=== PATIENT | female | born 1965 | race Caucasian/White ===

== ENCOUNTER 2022-12-10 10:22 | Observation (INO) | payer OTHER ==
[2022-12-10 11:20] LABS: Basophils % (A) 1 %; Eosinophils # (A) 0.3 k/uL (0-0.7); Eosinophils % (A) 5 %; HCT 35.5 % (34.0-46.0); HGB 11.2 gm/dL (11.4-16.0); Lymphocytes # (A) 0.8 k/uL (1.0-4.8); Lymphocytes % (A) 15 %; MCH 30.8 pg (25.0-35.0); MCHC 31.4 g/dL (31.0-37.0); Mean Platelet Volume 8.7; Monocytes # (A) 0.3 k/uL (0-1.0); Monocytes % (A) 6 %; Neutrophils # (A) 3.8 k/uL (1.3-7.7); Neutrophils % (A) 70 %; Platelet Count 154 k/uL (150-450); RBC 3.63 m/uL (3.80-5.40); WBC 5.4 k/uL (3.8-10.6)
[2022-12-10] MEDS ORDERED: LORazepam 2 MG/ML INJ IV STA ×2 (11:20→12:47)
[2022-12-10 11:33] LABS: ALT 137 U/L (4-34); AST 188 U/L (14-36); African American GFR (CKD) 84 (>60 ml/min/1.73 sqM); Albumin 4.7 g/dL (3.5-5.0); Alcohol <10 mg/dL; Alkaline Phosphatase 88 U/L (38-126); Anion Gap 11 mmol/L; Blood Urea Nitrogen 20 mg/dL (7-17); Calcium 9.3 mg/dL (8.4-10.2); Carbon Dioxide 24 mmol/L (22-30); Chloride 102 mmol/L (98-107); Glucose 114 mg/dL (74-99); Magnesium 1.9 mg/dL (1.6-2.3); Non-African American GFR(CKD) 73 (>60 ml/min/1.73 sqM); Potassium 4.1 mmol/L (3.5-5.1); Sodium 137 mmol/L (137-145); Total Bilirubin 0.6 mg/dL (0.2-1.3); Total Protein 7.1 g/dL (6.3-8.2)
--- NOTE | 2022-12-10 11:33 | ED ---
Psych HPI - General Chief Complaint: Psychiatric Symptoms Stated Complaint: AMS, weakness Time Seen by Provider: 12/10/22 10:39 Source: patient, family, RN notes reviewed Mode of arrival: ambulatory Limitations: no limitations - History of Present Illness Initial Comments: 57-year-old female presents emergency Department with family for evaluation dizziness, locations. Patient reportedly has been having some on-and-off hallucinations over the last week which patient states that she is visualizing the and hearing things that are not present to others. She states she is aware of the symptoms she doesn't that she has a history of depression denies s chizophrenia or bipolar disorder she is prescribed Prozac 60 mg daily but states that she's not always taking it. Patient denies any recent infections. Patient states she is dizzy worse with movement states the room spins discolored feel nauseated. Denies cough or cold like symptoms no chest pain no palpitations she states she had head trauma years ago but had no effects from this. - Related Data Home Medications Medication Instructions Recorded Confirmed FLUoxetine HCL [PROzac] 60 mg PO DAILY 12/10/22 12/12/22 Allergies Allergy/AdvReac Type Severity Reaction Status Date / Time No Known Allergies Allergy Verified 12/11/22 23:05 Review of Systems ROS Statement: Those systems with pertinent positive or pertinent negative responses have been documented in the HPI. ROS Other: All systems not noted in ROS Statement are negative. Past Medical History Past Medical History: Osteoarthritis (OA) History of Any Multi-Drug Resistant Organisms: None Reported Past Surgical History: Orthopedic Surgery Past Psychological History: Anxiety, Depression Smoking Status: Never smoker Past Alcohol Use History: Abuse Past Drug Use History: None Reported General Exam Limitations: no limitations General appearance: alert, in no apparent distress Head exam: Present: atraumatic, normocephalic, normal inspection Eye exam: Present: normal appearance, PERRL, EOMI. Absent: scleral icterus, conjunctival injection, periorbital swelling ENT exam: Present: normal exam, normal oropharynx, mucous membranes moist Neck exam: Present: normal inspection, full ROM. Absent: tenderness, meningismus, lymphadenopathy Respiratory exam: Present: normal lung sounds bilaterally. Absent: respiratory distress, wheezes, rales, rhonchi, stridor Cardiovascular Exam: Present: normal rhythm, tachycardia, normal heart sounds. Absent: systolic murmur, diastolic murmur, rubs, gallop, clicks GI/Abdominal exam: Present: soft, normal bowel sounds. Absent: distended, tenderness, guarding, rebound, rigid Neurological exam: Present: alert, oriented X3, CN II-XII intact, reflexes normal. Absent: motor sensory deficit Skin exam: Present: warm, dry, intact, normal color. Absent: rash Course Vital Signs 12/10/22 12/10/22 12/10/22 10:36 11:21 13:00 Temperature 98 F Pulse Rate 119 H 115 H 101 H Respiratory 22 20 20 Rate Blood Pressure 151/79 152/98 138/95 O2 Sat by Pulse 96 98 98 Oximetry 12/10/22 12/10/22 12/10/22 21:06 22:46 23:55 Temperature Pulse Rate 96 96 105 H Respiratory 20 18 16 Rate Blood Pressure 147/97 149/94 132/99 O2 Sat by Pulse 98 97 98 Oximetry Medical Decision Making - Medical Decision Making Was pt. sent in by a medical professional or institution (, PA, MULTIPLE LA[employer]CH ROCK[employer] SYSTEM CREWMEMBER, urgent care, hospital, or senior care...) When possible be specific @ -No Did you speak to anyone other than the patient for history (EMS, parent, family, police, friend...)? What history was obtained from this source @ -Family Did you review nursing and triage notes (agree or disagree)? Why? @ -I reviewed and agree with nursing and triage notes Were old charts reviewed (outside hosp., previous admission, EMS record, old EKG, old radiological studies, urgent care reports/EKG's, senior care records)? Report findings @ -No old charts were reviewed Differential Diagnosis (chest pain, altered mental status, abdominal pain women, abdominal pain men, vaginal bleeding, weakness, fever, dyspnea, syncope, headache, dizziness, GI bleed, back pain, seizure, CVA, palpatations, mental health)? @ -Psychosis, alcohol withdrawal, depression, anxiety, schizophrenia, bipolar d isorder, this list is not all-inclusive EKG interpreted by me (3pts min.). @ -As above X-rays interpreted by me (1pt min.). @ -None done CT interpreted by me (1pt min.). @ -None done U/S interpreted by me (1pt. min.). @ -None done What testing was considered but not performed or refused? (CT, X-rays, U/S, labs)? Why? @ -None What meds were considered but not given or refused? Why? @ -None Did you discuss the management of the patient with other professionals (professionals i.e. , PA, M[employer]IP[employer] R[employer] SYSTEM CREWMEMBER, lab, RT, psych nurse, social services technician, needle loom setter, teacher, commercial credit officer, case assembler)? Give summary @ -Dr Gil, psychiatric nurse Was smoking cessation discussed for >3mins.? @ -No Was critical care preformed (if so, how long)? @ -No Were there social determinants of health that impacted care today? How? (Homelessness, low income, unemployed, alcoholism, drug addiction, transportation, low edu. Level, literacy, decrease access to med. care, [facility], rehab)? @ -No Was there de-escalation of care discussed even if they declined (Discuss DNR or withdrawal of care, Hospice)? DNR status @ -No What co-morbidities impacted this encounter? (DM, HTN, Smoking, COPD, CAD, C ancer, CVA, ARF, Chemo, Hep., AIDS, mental health diagnosis, sleep apnea, morbid obesity)? @ -None Was patient admitted / discharged? Hospital course, mention meds given and route, prescriptions, significant lab abnormalities, going to OR and other pertinent info. @ -Admitted patient be admitted to medicine for further monitoring and evalua tion psychiatric consult. Undiagnosed new problem with uncertain prognosis? @ -No Drug Therapy requiring intensive monitoring for toxicity (Heparin, Nitro, Insulin, Cardizem)? @ -No Were any procedures done? @ -No Diagnosis/symptom? @ -Psychosis Acute, or Chronic, or Acute on Chronic? @ -Acute Uncomplicated (without systemic symptoms) or Complicated (systemic symptoms)? @ -[Complicated Side effects of treatment? @ -No Exacerbation, Progression, or Severe Exacerbation? @ -No Poses a threat to life or bodily function? How? (Chest pain, USA, PR, pneumonia, PE, COPD, DKA, ARF, appy, cholecystitis, CVA, Diverticulitis, Homicidal, Suicidal, threat to staff... and all critical care pts) @ -No - Lab Data Result diagrams: 12/10/22 11:07 12/10/22 11:07 Lab Results 12/10/22 12/10/22 12/10/22 Range/Units 11:07 11:07 11:07 WBC 5.4 (3.8-10.6) k/uL RBC 3.63 L (3.80-5.40) m/uL Hgb 11.2 L (11.4-16.0) gm/dL Hct 35.5 (34.0-46.0) % MCV 98.0 (80.0-100.0) fL MCH 30.8 (25.0-35.0) pg MCHC 31.4 (31.0-37.0) g/dL RDW 15.0 (11.5-15.5) % Plt Count 154 (150-450) k/uL MPV 8.7 Neutrophils % 70 % Lymphocytes % 15 % Monocytes % 6 % Eosinophils % 5 % Basophils % 1 % Neutrophils # 3.8 (1.3-7.7) k/uL Lymphocytes # 0.8 L (1.0-4.8) k/uL Monocytes # 0.3 (0-1.0) k/uL Eosinophils # 0.3 (0-0.7) k/uL Basophils # 0.0 (0-0.2) k/uL Sodium 137 (137-145) mmol/L Potassium 4.1 (3.5-5.1) mmol/L Chloride 102 (98-107) mmol/L Carbon Dioxide 24 (22-30) mmol/L Anion Gap 11 mmol/L BUN 20 H (7-17) mg/dL Creatinine 0.88 (0.52-1.04) mg/dL Est GFR (CKD-EPI)AfAm 84 (>60 ml/min/1.73 sqM) Est GFR (CKD-EPI)NonAf 73 (>60 ml/min/1.73 sqM) Glucose 114 H (74-99) mg/dL Calcium 9.3 (8.4-10.2) mg/dL Magnesium 1.9 (1.6-2.3) mg/dL Total Bilirubin 0.6 (0.2-1.3) mg/dL AST 188 H (14-36) U/L ALT 137 H (4-34) U/L Alkaline Phosphatase 88 (38-126) U/L Troponin I (0.000-0.034) ng/mL Total Protein 7.1 (6.3-8.2) g/dL Albumin 4.7 (3.5-5.0) g/dL Urine Color Urine Appearance (Clear) Urine pH (5.0-8.0) Ur Specific [place] (1.001-1.035) Urine Protein (Negative) Urine Glucose (UA) (Negative) Urine Ketones (Negative) Urine Blood (Negative) Urine Nitrite (Negative) Urine Bilirubin (Negative) Urine Urobilinogen (<2.0) mg/dL Ur Leukocyte Esterase (Negative) Urine RBC (0-5) /hpf Urine WBC (0-5) /hpf Ur Squamous Epith Cells (0-4) /hpf Urine Bacteria (None) /hpf Hyaline Casts (0-2) /lpf Urine Mucus (None) /hpf Urine Opiates Screen Not Detected (NotDetected) Ur Oxycodone Screen Not Detected (NotDetected) Urine Methadone Screen Not Detected (NotDetected) Ur Propoxyphene Screen Not Detected (NotDetected) Ur Barbiturates Screen Not Detected (NotDetected) U Tricyclic Antidepress Detected H (NotDetected) Ur Phencyclidine Scrn Not Detected (NotDetected) Ur Amphetamines Screen Not Detected (NotDetected) U Methamphetamines Scrn Not Detected (NotDetected) U Benzodiazepines Scrn Detected H (NotDetected) Urine Cocaine Screen Not Detected (NotDetected) U Marijuana (THC) Screen Not Detected (NotDetected) Serum Alcohol <10 mg/dL 12/10/22 12/10/22 Range/Units 11:07 11:07 WBC (3.8-10.6) k/uL RBC (3.80-5.40) m/uL Hgb (11.4-16.0) gm/dL Hct (34.0-46.0) % MCV (80.0-100.0) fL MCH (25.0-35.0) pg MCHC (31.0-37.0) g/dL RDW (11.5-15.5) % Plt Count (150-450) k/uL MPV Neutrophils % % Lymphocytes % % Monocytes % % Eosinophils % % Basophils % % Neutrophils # (1.3-7.7) k/uL Lymphocytes # (1.0-4.8) k/uL Monocytes # (0-1.0) k/uL Eosinophils # (0-0.7) k/uL Basophils # (0-0.2) k/uL Sodium (137-145) mmol/L Potassium (3.5-5.1) mmol/L Chloride (98-107) mmol/L Carbon Dioxide (22-30) mmol/L Anion Gap mmol/L BUN (7-17) mg/dL Creatinine (0.52-1.04) mg/dL Est GFR (CKD-EPI)AfAm (>60 ml/min/1.73 sqM) Est GFR (CKD-EPI)NonAf (>60 ml/min/1.73 sqM) Glucose (74-99) mg/dL Calcium (8.4-10.2) mg/dL Magnesium (1.6-2.3) mg/dL Total Bilirubin (0.2-1.3) mg/dL AST (14-36) U/L ALT (4-34) U/L Alkaline Phosphatase (38-126) U/L Troponin I <0.012 (0.000-0.034) ng/mL Total Protein (6.3-8.2) g/dL Albumin (3.5-5.0) g/dL Urine Color Yellow Urine Appearance Cloudy H (Clear) Urine pH 6.5 (5.0-8.0) Ur Specific [place] 1.026 (1.001-1.035) Urine Protein 1+ H (Negative) Urine Glucose (UA) Negative (Negative) Urine Ketones Trace H (Negative) Urine Blood Negative (Negative) Urine Nitrite Negative (Negative) Urine Bilirubin Negative (Negative) Urine Urobilinogen <2.0 (<2.0) mg/dL Ur Leukocyte Esterase Large H (Negative) Urine RBC 5 (0-5) /hpf Urine WBC 32 H (0-5) /hpf Ur Squamous Epith Cells <1 (0-4) /hpf Urine Bacteria Rare H (None) /hpf Hyaline Casts 6 H (0-2) /lpf Urine Mucus Rare H (None) /hpf Urine Opiates Screen (NotDetected) Ur Oxycodone Screen (NotDetected) Urine Methadone Screen (NotDetected) Ur Propoxyphene Screen (NotDetected) Ur Barbiturates Screen (NotDetected) U Tricyclic Antidepress (NotDetected) Ur Phencyclidine Scrn (NotDetected) Ur Amphetamines Screen (NotDetected) U Methamphetamines Scrn (NotDetected) U Benzodiazepines Scrn (NotDetected) Urine Cocaine Screen (NotDetected) U Marijuana (THC) Screen (NotDetected) Serum Alcohol mg/dL - EKG Data -: EKG Interpreted by Me EKG Comments: EKG performed at 11:50 sinus rhythm with incomplete right bundle rate 99 TX 172 QRS 94 QT/TC 393/450 Disposition Clinical Impression: Acute psychosis, Alcoholism, Acute delirium, Stress reaction, chronic Disposition: ADMITTED IP TO THIS HOSP Condition: Good
--- NOTE | 2022-12-10 12:01 | CT ---
EXAMINATION TYPE: CT brain wo con CT DLP: 1099.4 mGycm, Automated exposure control for dose reduction was used. DATE OF EXAM: 12/10/2022 11:53 AM COMPARISON: None. CLINICAL INDICATION:Female, 57 years old with history of dizziness, AMS TECHNIQUE: Brain: Axial CT images of the brain were obtained with coronal and sagittal reformats created and rev iewed. Contrast used: None. Oral contrast used: None. FINDINGS: Brain: Extra-axial spaces: No abnormal extra-axial fluid collections. Ventricular system: Within normal limits Cerebral parenchyma: No acute intraparenchymal hemorrhage or mass effect. The meng-white junction is well differentiated. Cerebellum: Unremarkable. Mass effect: No evidence of midline shift. Intracranial vasculature: Atherosclerotic calcifications of the intracranial vessels. Soft tissues: Normal. Calvarium/osseous structures: No depressed skull fracture. Paranasal sinuses and mastoid air cells: Mild scattered paranasal sinus disease. Visualized orbits: Orbital contents are intact. IMPRESSION: No acute intracranial process.
[2022-12-10] MEDS ORDERED: SODIUM CHLORIDE 0.9% 1,000 ML IV STA (12:18)
[2022-12-10 14:58] LABS: Appearance,Urine Cloudy (Clear); Bacteria,Urine Rare /hpf; Bilirubin,Urine Negative (Negative); Blood,Urine Negative (Negative); Color,Urine Yellow; Glucose,Urine (UA) Negative (Negative); Hyaline Casts,Urine 6 /lpf (0-2); Ketones,Urine Trace (Negative); Leukocyte Esterase,Urine Large (Negative); Mucus,Urine Rare /hpf; Nitrite,Urine Negative (Negative); PH, Urine 6.5 (5.0-8.0); Protein,Urine 1+ (Negative); RBC,Urine 5 /hpf (0-5); Specific Gravity,Urine 1.026 (1.001-1.035); Squamous Epithelial Cell,Urine <1 /hpf (0-4); Urobilinogen,Urine <2.0 mg/dL (<2.0); WBC,Urine 32 /hpf (0-5)
[2022-12-10 15:08] LABS: Amphetamine Screen,Urine Not Detected (NotDetected); Barbiturate Screen,Urine Not Detected (NotDetected); Benzodiazepines Screen,Urine Detected (NotDetected); Cocaine Screen,Urine Not Detected (NotDetected); Methadone Screen, Urine Not Detected (NotDetected); Opiate Screen,Urine Not Detected (NotDetected); Oxycodone Screen, Urine Not Detected (NotDetected); Phencyclidine Screen,Urine Not Detected (NotDetected); Tricyclic Antidepressant,Urine Detected (NotDetected); Urn Cannabinoid Scrn Not Detected (NotDetected)
[2022-12-10] MEDS ORDERED: cefTRIAXone IN SWFI 1,000 MG/10 ML SYRINGE IVP STA (20:37)
[2022-12-10] MEDS: chlordiazePOXIDE 25 MG CAP PO SCH (21:03)
[2022-12-10] MEDS ORDERED: SULFAMETHOX-TMP 800-160MG 1 EACH TAB PO STA (22:22)
[2022-12-10] MEDS ORDERED: NALOXONE 0.4 MG/ML 1 ML VIAL IV PRN (22:27)
[2022-12-10] MEDS ORDERED: LORazepam 2 MG/ML INJ IV PRN ×3 (22:31)
[2022-12-10] MEDS: SODIUM CHLORIDE 0.9% 1,000 ML IV SCH (23:25)
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
[2022-12-11] MEDS: FAMOTIDINE 20 MG TAB PO SCH ×2 (08:55→20:38)
[2022-12-11] MEDS: chlordiazePOXIDE 25 MG CAP PO SCH ×3 (08:55→20:38)
[2022-12-11] MEDS: CIPROFLOXACIN HCL 500 MG TAB PO SCH ×2 (08:55→20:38)
[2022-12-11] MEDS ORDERED: FLUoxetine HCL 20 MG CAP PO SCH (09:00)
[2022-12-11] MEDS ORDERED: THIAMINE 100 MG TAB PO SCH (09:00)
[2022-12-11] MEDS: SODIUM CHLORIDE 0.9% 1,000 ML IV SCH (09:25)
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
[2022-12-11 14:52] VITALS: TEMP 98
[2022-12-11] MEDS ORDERED: risperiDONE 1 MG TAB PO SCH (21:00)
[2022-12-11 21:27] VITALS: BP 126/72; PULSE 88; RESP 15
[2022-12-12] MEDS ORDERED: VENLAFAXINE HCL ER 37.5 MG CAP PO SCH (09:00)
== END 2022-12-11 22:08 ==
LOC: EC 10:22 → 4SSUR 22:27 → INTOOBSV 22:27 → 4SSUR 23:17 → UNDODISIN 12-11 22:08
PROVIDERS: ADMIT Family Medicine; ATTEND Family Medicine
DX: F10.239 Alcohol dependence with withdrawal, unspecified (principal); F23 Brief psychotic disorder; N39.0 Urinary tract infection, site not specified; F43.9 Reaction to severe stress, unspecified; F32.A Depression, unspecified; F41.9 Anxiety disorder, unspecified; M19.90 Unspecified osteoarthritis, unspecified site; R45.851 Suicidal ideations; F10.20 Alcohol dependence, uncomplicated; Z71.41 Alcohol abuse counseling and surveillance of alcoholic; Z20.822 Contact with and (suspected) exposure to COVID-19; Y90.0 Blood alcohol level of less than 20 mg/100 ml; I45.10 Unspecified right bundle-branch block; Z91.14 Patient's other noncompliance with medication regimen; Z79.899 Other long term (current) drug therapy; Z81.8 Family history of other mental and behavioral disorders
CPT/HCPCS: 96376; 96361; 96374; 96375; 99285; 36415; 93005; 80053; 83735; 84484; 85025; 81001; 80306; 87086; 87077; 87186; 87635; 70450; G0378 ×2; G0480; J2060; J0696; 80320

== ENCOUNTER 2022-12-11 22:52 | Inpatient (IN) | payer MEDICAID ==
[2022-12-11] MEDS ORDERED: MAG HYDROX/AL HYDROX/SIMETH 30 ML CUP PO PRN (23:12)
[2022-12-11] MEDS ORDERED: HALOPERIDOL LACTATE 5 MG/ML 1 ML VIAL IM PRN (23:12)
[2022-12-11] MEDS ORDERED: MAGNESIUM HYDROXIDE 2,400 MG/10 ML CUP PO PRN (23:12)
[2022-12-11] MEDS ORDERED: LORazepam 1 MG TAB PO PRN ×2 (23:12)
[2022-12-11] MEDS ORDERED: LORazepam 2 MG/ML INJ IM PRN (23:25)
[2022-12-11] MEDS ORDERED: haloperidoL 5 MG TAB PO PRN (23:26)
[2022-12-12] MEDS: chlordiazePOXIDE 25 MG CAP PO SCH ×4 (08:47→20:39)
[2022-12-12] MEDS: FAMOTIDINE 20 MG TAB PO SCH ×2 (08:47→20:39)
[2022-12-12] MEDS: ACETAMINOPHEN TAB 325 MG TAB PO PRN ×2 (08:47→23:39)
[2022-12-12] MEDS: MULTIVITAMINS, THERA 1 EACH TAB PO SCH (08:47)
[2022-12-12] MEDS: CIPROFLOXACIN HCL 500 MG TAB PO SCH ×2 (08:47→20:38)
[2022-12-12] MEDS: THIAMINE 100 MG TAB PO SCH (08:47)
[2022-12-12] MEDS: FOLIC ACID 1 MG TAB PO SCH (08:47)
[2022-12-12] MEDS ORDERED: NICOTINE 14MG/24HR PATCH TRANSDERM SCH (09:00)
[2022-12-12 09:26] VITALS: BMI 19.9
[2022-12-12 13:44] LABS: Chol/HDL Ratio 2.34 Ratio; LDL Cholesterol,Calculated 145.2 mg/dL (0.0-131.0); VLDL Calculation 12.82 mg/dL (5.00-40.00)
[2022-12-12 17:20] LABS: African American GFR (CKD) 109.9 (60.0-200.0); Anion Gap 13.8 mmol/L (10.00-18.00); Carbon Dioxide 22.2 mmol/L (20.0-27.5); Magnesium 2.2 mg/dL (1.5-2.4); Non-African American GFR(CKD) 94.8 (60.0-200.0); Potassium 4.3 mmol/L (3.5-5.5); T4, Free (Free Thyroxine) 1.02 ng/dL (0.800-1.800); Total Bilirubin 0.3 mg/dL (0.30-1.20); Total Protein 5.6 g/dL (6.2-8.2)
--- NOTE | 2022-12-12 18:12 | P.CONS ---
History of Present Illness - Reason for Consult Consult date: 12/12/22 Medical management - Chief Complaint Severe depression - History of Present Illness 57-year-old female patient with long-standing history of alcohol abuse, admitted voluntarily to mental health unit for severe recurrent depression and substance abuse Patient reports she stopped drinking about a week ago and was starting to have visual hallucinations, dizziness and agitation and irritability and was brought to ED by the patient's sister and [id number] Review of Systems REVIEW OF SYSTEMS: CONSTITUTIONAL: No fever, no malaise, no fatigue. HEENT: No recent visual problems or hearing problems. Denied any sore throat. CARDIOVASCULAR: No chest pain, orthopnea, PND, no palpitations, no syncope. PULMONARY: No shortness of breath, no cough, no hemoptysis. GASTROINTESTINAL: No diarrhea, no nausea, no vomiting, no abdominal pain. NEUROLOGICAL: No headaches, no weakness, no numbness. HEMATOLOGICAL: Denies any bleeding or petechiae. GENITOURINARY: Denies any burning micturition, frequency, or urgency. MUSCULOSKELETAL/RHEUMATOLOGICAL: Denies any joint pain, swelling, or any muscle pain. ENDOCRINE: Denies any polyuria or polydipsia. The rest of the 14-point review of systems is negative. Past Medical History Past Medical History: Osteoarthritis (OA) History of Any Multi-Drug Resistant Organisms: None Reported Past Surgical History: Orthopedic Surgery Past Psychological History: Anxiety, Depression Smoking Status: Never smoker Past Alcohol Use History: Abuse Past Drug Use History: None Reported Medications and Allergies Home Medications Medication Instructions Recorded Confirmed Type FLUoxetine HCL [PROzac] 60 mg PO DAILY 12/10/22 12/12/22 History Allergies Allergy/AdvReac Type Severity Reaction Status Date / Time No Known Allergies Allergy Verified 12/12/22 11:29 Physical Exam Vitals: Vital Signs Temp Pulse Resp BP Pulse Ox 12/12/22 08:50 107 H 110/60 12/11/22 23:42 97.5 F L 94 18 114/71 95 Intake and Output 12/11/22 12/12/22 12/12/22 22:59 06:59 14:59 Other: Weight 50.95 kg 50.95 kg PHYSICAL EXAMINATION: GENERAL: The patient is alert and oriented x3, not in any acute distress. Well d eveloped, well nourished. HEENT: Pupils are round and equally reacting to light. EOMI. No scleral icterus. No conjunctival pallor. Normocephalic, atraumatic. No pharyngeal erythema. No thyromegaly. CARDIOVASCULAR: S1 and S2 present. No murmurs, rubs, or gallops. PULMONARY: Chest is clear to auscultation, no wheezing or crackles. ABDOMEN: Soft, nontender, nondistended, normoactive bowel sounds. No palpable organomegaly. MUSCULOSKELETAL: No joint swelling or deformity. EXTREMITIES: No cyanosis, clubbing, or pedal edema. NEUROLOGICAL: Gross neurological examination did not reveal any focal deficits. SKIN: No rashes. Results CBC & Chem 7: 12/12/22 06:37 Labs: Abnormal Lab Results - Last 24 Hours (Table) 12/12/22 Range/Units 06:37 TSH 0.193 L (0.465-4.680) mIU/L Assessment and Plan Assessment: 1. Recurrent major depression; patient's Prozac at home 2. Substance abuse; patient reports alcohol abuse for a long time; stopped drinking about 2 weeks ago 3. EtOH detox/withdrawal; patient has been placed on CIWA protocol with Ativan and Librium 4. Transaminitis; AST/ALT is elevated at 120/131 5. Hyperlipidemia; total cholesterol is elevated at 276 with an LDL of 145.2; patient currently not on any statin therapy 6. Low TSH; we will check free T4 levels
[2022-12-12] MEDS: traZODone HCL 50 MG TAB PO SCH (20:39)
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
[2022-12-12] MEDS: LORazepam 1 MG TAB PO PRN (23:39)
[2022-12-13] MEDS: THIAMINE 100 MG TAB PO SCH (08:37)
[2022-12-13] MEDS: MULTIVITAMINS, THERA 1 EACH TAB PO SCH (08:37)
[2022-12-13] MEDS: VENLAFAXINE HCL ER 75 MG CAP PO SCH (08:37)
[2022-12-13] MEDS: FAMOTIDINE 20 MG TAB PO SCH ×2 (08:37→20:30)
[2022-12-13] MEDS: chlordiazePOXIDE 25 MG CAP PO SCH ×3 (08:37→18:34)
[2022-12-13] MEDS: FOLIC ACID 1 MG TAB PO SCH (08:37)
[2022-12-13] MEDS: CIPROFLOXACIN HCL 500 MG TAB PO SCH ×2 (08:37→20:30)
--- NOTE | 2022-12-13 19:02 | P.PN ---
Progress Note - Text Progress Note Date: 12/13/22 Interval history: Patient was seen wandering the hallways and was directable and agreeable to speak with contract writer. She reports her mood is better today, still appears anxious, but is improved from yesterday. At this time patient denies any suicidal or homicidal ideation, intent or plan. Denies any auditory or visual hallucinations. Patient denies any side effects from the medications and has been compliant with meds. She is tolerating the Effexor XR. She reports she had difficulty falling asleep last night despite taking Trazodone 50 mg x 1 and took an Ativan 1 mg po x 1 around midnight for anxiety and was able to sleep after that. She denies shaking/tremoring from alcohol withdrawal currently and is tolerating the Librium taper. Mental status exam: General Appearance: Patient appears to be stated age, slender adult female with martinez hair, average grooming and hygiene. Behavior: Patient attempted to cooperate without any agitated behavior. Fair eye contact. Speech: Patient's speech is fluent and non-pressured. Mood/Affect: Mood is mildly improving, affect is anxious and constricted. Suicidality/Homicidality: Patient denies having any homicidal or suicidal ideation, intent or plan. Perceptions: Patient denies any visual hallucinations and denies any auditory hallucinations. Though content/process: There is no evidence of any delusional thought content and thought process is ruminative. Memory and concentration: AOX3, grossly intact for the purposes of this session. Judgment and insight: fair Assessment/Plan: Continue with current diagnosis. Patient continues to meet criteria for inpatient psychiatric admission for symptom stabilization and safety. Continue Effexor XR 75 mg daily for depression/anxiety, with plan to gradually increase as tolerated. Continue Trazodone 50 mg QHS scheduled for insomnia. Decrease Librium from 25 mg QID to 25 mg TID for alcohol withdrawal. Monitor vital signs closely. Monitor for medication compliance and for any psychotropic medication side effects. Will continue to monitor ongoing response to treatment. Encouraged participation in milieu.
[2022-12-13] MEDS: LORazepam 1 MG TAB PO PRN (20:30)
[2022-12-13] MEDS: traZODone HCL 50 MG TAB PO SCH (20:30)
[2022-12-13] MEDS ORDERED: chlordiazePOXIDE 25 MG CAP PO SCH (22:00)
[2022-12-14] MEDS ORDERED: chlordiazePOXIDE 25 MG CAP PO SCH (08:00)
[2022-12-14] MEDS: MULTIVITAMINS, THERA 1 EACH TAB PO SCH (08:55)
[2022-12-14] MEDS: FAMOTIDINE 20 MG TAB PO SCH ×2 (08:55→20:10)
[2022-12-14] MEDS: THIAMINE 100 MG TAB PO SCH (08:55)
[2022-12-14] MEDS: FOLIC ACID 1 MG TAB PO SCH (08:55)
[2022-12-14] MEDS: VENLAFAXINE HCL ER 75 MG CAP PO SCH (08:55)
[2022-12-14] MEDS: CIPROFLOXACIN HCL 500 MG TAB PO SCH ×2 (08:55→20:10)
--- NOTE | 2022-12-14 13:29 | P.PN ---
Progress Note - Text Progress Note Date: 12/14/22 Interval history: Patient was seen wandering the hallways and was directable and agreeable to s peak with automobile and property underwriter. Patient was also seen earlier in group today participating. She appears to be improved in terms of her mood and also anxiety. She claims that she is now "able to concentrate". She claims that the medications have been helping significantly. She also claims that she was able to sleep a bit better last night. She is not reporting any side effects at this time. Claims that she has been going to groups. She states she is unsure about doing inpatient rehab and would rather do outpatient treatment. She claims that her withdrawal symptoms of decreased significantly. At this time she is denying any auditory or visual hallucinations, not endorsing delusions or paranoia. She is denying any suicidal or homicidal ideations intent or plan. Mental status exam: General Appearance: Patient appears to be stated age, slender adult female with martinez hair, average grooming and hygiene. Behavior: Patient attempted to cooperate without any agitated behavior. improving eye contact. Speech: Patient's speech is fluent and non-pressured. Mood/Affect: Mood is mildly improving, affect is anxious Suicidality/Homicidality: Patient denies having any homicidal or suicidal ideation, intent or plan. Perceptions: Patient denies any visual hallucinations and denies any auditory hallucinations. Though content/process: There is no evidence of any delusional thought content and thought process is ruminative. improving. Memory and concentration: AOX3, grossly intact for the purposes of this session. Judgment and insight: fair, improving midlly Plan: Psychosis NOS alcohol use disorder severe dependence trauma related stress disorder Treatment: Continue with current diagnosis. Patient continues to meet criteria for inpatient psychiatric admission for symptom stabilization and safety. increase Effexor XR 150 mg daily for depression/anxiety increase Trazodone 100 mg QHS scheduled for insomnia. Decrease Librium from 10 mg QID for alcohol withdrawal. Monitor vital signs danyelle sely and continue tapering down. Monitor for medication compliance and for any psychotropic medication side effects. Will continue to monitor ongoing response to treatment. Encouraged participation in milieu. likely discharge tomorrow. Patient states that she doesnt want to do inpatient rehab and would prefer to do outpatient.
[2022-12-14] MEDS ORDERED: traZODone HCL 100 MG TAB PO SCH (21:00)
[2022-12-15 06:32] VITALS: BP 113/64; PULSE 89; RESP 16; TEMP 97.9
[2022-12-15] MEDS: THIAMINE 100 MG TAB PO SCH (08:42)
[2022-12-15] MEDS: MULTIVITAMINS, THERA 1 EACH TAB PO SCH (08:42)
[2022-12-15] MEDS: FOLIC ACID 1 MG TAB PO SCH (08:42)
[2022-12-15] MEDS: FAMOTIDINE 20 MG TAB PO SCH (08:42)
[2022-12-15] MEDS: CIPROFLOXACIN HCL 500 MG TAB PO SCH (08:43)
[2022-12-15] MEDS ORDERED: VENLAFAXINE HCL ER 150 MG CAP PO SCH (09:00)
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
== END 2022-12-15 13:40 | disposition home or self-care (01) | DRG 885 ==
LOC: 3MHU 22:52
PROVIDERS: ADMIT Psychiatry & Neurology Psychiatry; ATTEND Psychiatry & Neurology Psychiatry
DX: F29 Unspecified psychosis not due to a substance or known physiological condition (principal); R45.851 Suicidal ideations; F33.9 Major depressive disorder, recurrent, unspecified; F10.239 Alcohol dependence with withdrawal, unspecified; N39.0 Urinary tract infection, site not specified; Z28.310 Unvaccinated for COVID-19; F41.1 Generalized anxiety disorder; F41.0 Panic disorder [episodic paroxysmal anxiety]; E78.5 Hyperlipidemia, unspecified; F43.9 Reaction to severe stress, unspecified; M19.90 Unspecified osteoarthritis, unspecified site; R74.01 Elevation of levels of liver transaminase levels; G47.00 Insomnia, unspecified; Z79.899 Other long term (current) drug therapy; Z56.0 Unemployment, unspecified; Z91.410 Personal history of adult physical and sexual abuse
CPT/HCPCS: 80053; 80061; 83036; 83735; 84439; 84443

== ENCOUNTER → 2025-01-17 | Outpatient (CLI) | payer OTHER ==
--- NOTE | 2025-01-17 09:01 | US ---
EXAMINATION TYPE: US liver DATE OF EXAM: 01/17/2025 COMPARISON: NONE CLINICAL INDICATION: Female, 59 years old with history of R94.5 ABNORMAL RESULTS OF LIVER FUNCTION ST UDIES; elevated liver labs & on & off abd pain TECHNIQUE: Grayscale and color Doppler imaging of the right upper quadrant. FINDINGS: EXAM MEASUREMENTS: Liver Length: 14.4 cm Gallbladder Wall: 0.2 cm CBD: 0.2 cm, color Doppler imaging was utilized to isolate the common bile duct for measurement. Right Kidney: 8.8x4.4x5.1 cm MINIATURE MODEL [employer]KER NOTES: limited exam due to overlying bowel & pt unable to hold still Pancreas: Tail obscured by overlying bowel gas Liver: slightly increased attenuation, heterogeneous, course echotexture Gallbladder: No stones seen Evidence for sonographic Paulino's sign: No CBD: wnl Right Kidney: No hydronephrosis or masses seen slightly limited visualization due to overlying bowel & rib shadow Visualized liver is heterogeneously hyperechoic. This limits evaluation for focal masses. No adjacent ascites. IMPRESSION: Suboptimal study. Diffuse fatty infiltration of liver and/or underlying hepatocellular di sease is present. [facility], , 01/17/2025 8:59 AM
== END | disposition home or self-care (01) ==
LOC: RADUSWWP 07:46
PROVIDERS: ATTEND Family Medicine
DX: R94.5 Abnormal results of liver function studies (principal)
CPT/HCPCS: 76705